=== PATIENT | male | born 1985 ===

== ENCOUNTER 2017-09-01 11:38 | Emergency (ER) | payer OTHER ==
[~2017-09-01] VITALS: Ht 172.7 cm; Wt 81.6 kg
[~2017-09-01 11:38] MED LIST: HYDROCORTISO453.6 G1 TOP; IBUPROFEN800 M1 PO
[2017-09-01 12:03] VITALS: BP 135/77
--- NOTE | 2017-09-01 12:11 | ED GENERAL ADULT ---
History of Present Illness General Chief Complaint: Suture Removal/Wound Recheck Stated Complaint: SUTURE REMOVAL Source: patient Exam Limitations: no limitations Vital Signs & Intake/Output Vital Signs & Intake/Output Vital Signs Date Time Temp Pulse Resp B/P B/P Pulse O2 O2 Flow FiO2 Mean Ox Delivery Rate 09/01 1203 98.1 84 16 135/77 99 Room Air Allergies Coded Allergies: No Known Allergies (08/22/17) Reconcile Medications Hydrocortisone 1 % CREAM..G. 1 KASI TOP BID POISON MARY apply to affected area(s) Ibuprofen 800 MG TABLET 1 TAB PO TID PRN PAIN Triage Note: SUTURE REMOVAL TO L THUMB DENIES FEVERS/CHILLS. DENIES DRAINAGE FROM SITE. Triage Nurses Notes Reviewed? yes Onset: Abrupt Duration: day(s): Timing: constant HPI: 32-year-old otherwise healthy male presenting for suture removal. Patient had 4 sutures placed to his left thumb 10 days ago after sustaining a laceration from a razor. His tetanus was updated at that time. Denies numbness or paresthesias. Denies fevers or purulent drainage. (Nicki Beltrán) Past History Travel History Traveled to [place] past 21 day No Medical History Any Pertinent Medical History? none Neurological: NONE EENT: NONE Cardiovascular: NONE Respiratory: NONE Gastrointestinal: NONE Hepatic: NONE Renal: NONE Musculoskeletal: NONE Psychiatric: NONE Endocrine: NONE Blood Disorders: NONE Cancer(s): NONE CANDLES POURER/Reproductive: NONE Tetanus Vaccine: 08/22/17 Surgical History Surgical History: non-contributory Psychosocial History What is your primary language [place]er Tobacco Use: Current Not Daily Daily Tobacco Use Amount/Type: => 5 Cigarettes daily Family History Hx Contributory? No (Nicki Beltrán) Review of Systems Review of Systems Constitutional: Reports: no symptoms. EENTM: Reports: no symptoms. Respiratory: Reports: no symptoms. Cardiovascular: Reports: no symptoms. GI: Reports: no symptoms. Genitourinary: Reports: no symptoms. Musculoskeletal: Reports: no symptoms. Skin: Reports: see HPI. Neurological/Psychological: Reports: no symptoms. Hematologic/Endocrine: Reports: no symptoms. Immunologic/Allergic: Reports: no symptoms. All Other Systems: Reviewed and Negative (Nicki Beltrán) Physical Exam Physical Exam General Appearance: well developed/nourished, no apparent distress, alert, awake , comfortable Head: atraumatic, normal appearance Eyes: Bilateral: normal appearance. Neck: normal inspection Respiratory: normal breath sounds, lungs clear Cardiovascular: regular rate/rhythm Gastrointestinal: soft, non-tender Back: normal inspection Extremities: [address] to well healed lac to left thumb, no surrounding erythema or purulent drainage Neurologic/Psych: awake, alert, oriented x 3, normal gait, normal mood/affect Skin: normal color, warm/dry Core Measures ACS in differential dx? No CVA/TIA Diagnosis: No Sepsis Present: No Sepsis Focused Exam Completed? No (Nicki Beltrán) Progress Differential Diagnoses I considered the following diagnoses in my evaluation of the patient: [suture removal, low concern for wound infection vs wound separation] Plan of Care: 4 sutures removal Wound remains intact Counseled on wound care and strict return precautions Initial ED EKG: none (Nicki Beltrán) Departure Departure Disposition: HOME OR SELF CARE Condition: Stable Clinical Impression Primary Impression: Visit for suture removal Referrals: Patient Has No Primary Care Dr (PCP/Family) Additional Instructions: Keep the wound clean and dry. Follow-up with your primary care provider for reevaluation. Return to the emergency department for any new or worsening symptoms. Departure Forms: Customer Survey General Discharge Information (Nicki Beltrán) PA/PUPPY TRAINER Co-Sign Statement Statement: ED Attending supervision documentation- [] I saw and evaluated the patient. I have also reviewed all the pertinent lab results and diagnostic results. I agree with the findings and the plan of care as documented in the PA's/PUPPY TRAINER's documentation. [x I have reviewed the ED Record and agree with the PA's/PUPPY TRAINER's documentation. [] Additions or exceptions (if any) to the PAs/PUPPY TRAINER's note and plan are summarized below: [] (Julián BRITTON,[facility]) Critical Care Note Critical Care Note Critical Care Time: non-applicable (Nicki Beltrán)
== END 2017-09-01 12:23 ==
LOC: ERH 11:38
DX: Z48.02 Encounter for removal of sutures (principal)